=== PATIENT | female | born 1980 | race Caucasian/White ===

== ENCOUNTER 2023-03-03 01:42 | Emergency (ER) | payer MEDICAID ==
[~2023-03-03] VITALS: Ht 154.9 cm; Wt 72.7 kg
[~2023-03-03 01:42] MED LIST: BUPR100T5 PO; FLUO-103 PO
[2023-03-03 01:50] VITALS: TEMP 98.4
[2023-03-03] MEDS ORDERED: LISI20TA28 PO (01:55)
[2023-03-03] MEDS ORDERED: LEVO50TA8 PO (01:55)
[2023-03-03] MEDS ORDERED: cloNIDine 0.1 mg tablet PO ONE ×2 (02:00→02:50)
--- NOTE | 2023-03-03 02:01 | NUR ---
dr campbell notified of high bp. pt denies any meth use tonight or other medications. pt admits to one alcohol drink tonight at the bar.
[2023-03-03] MEDS ORDERED: hydrALAZINE 20mg/ml inj. IV ONE (04:10)
[2023-03-03] MEDS ORDERED: LORazepam 1 MG tablet PO ONE (04:40)
--- NOTE | 2023-03-03 05:22 | NUR ---
pt released from custody by [facility] officer.
[2023-03-03 05:23] VITALS: BP 170/104; PULSE 105; RESP 18; O2SAT 98
== END 2023-03-03 05:19 | disposition home or self-care (01) ==
LOC: ER 01:43
DX: I10 Essential (primary) hypertension (principal); F15.90 Other stimulant use, unspecified, uncomplicated; Z72.89 Other problems related to lifestyle; Z79.899 Other long term (current) drug therapy
CPT/HCPCS: 96374; 99285; J0360

== ENCOUNTER 2024-03-04 14:52 | Emergency (ER) | payer MEDICAID ==
[~2024-03-04] VITALS: Ht 157.5 cm; Wt 64.4 kg
[~2024-03-04 14:52] MED LIST changes: -BUPR100T5 PO; -FLUO-103 PO; +LEVO50TA8 PO; +LISI20TA28 PO
[2024-03-04 15:04] VITALS: BP 126/82; PULSE 63; RESP 18; O2SAT 99
[2024-03-04] MEDS ORDERED: OMEP40CA21 PO (15:42)
[2024-03-04] MEDS ORDERED: LEVO50CA4 PO (15:42)
[2024-03-04] MEDS ORDERED: MULT-1085 PO (15:42)
[2024-03-04] MEDS ORDERED: LISI40TA13 PO (15:42)
[2024-03-04] MEDS ORDERED: METF-900 PO (15:42)
[2024-03-04 15:50] VITALS: TEMP 98.4
== END 2024-03-04 15:53 | disposition home or self-care (01) ==
LOC: ER 14:53
DX: Z76.0 Encounter for issue of repeat prescription (principal); I10 Essential (primary) hypertension; F32.A Depression, unspecified; F15.90 Other stimulant use, unspecified, uncomplicated; Z79.2 Long term (current) use of antibiotics; Z79.899 Other long term (current) drug therapy
CPT/HCPCS: 99283